=== PATIENT | male | born 1940 | race Caucasian/White ===

== ENCOUNTER 2016-11-07 10:33 | Inpatient (IN) | payer MEDICARE ==
[2016-10-31 11:18] LABS: WBC (NOT ORDERED) (RFLEX) 0 (0-5)
[2016-10-31 11:31] LABS: BASOPHILS 0.5 %; BASOPHILS ABSOLUTE 0.03 10/3/uL (0.0-0.16); EOSINOPHILS 4.2 %; EOSINOPHILS ABSOLUTE 0.24 10/3/uL (0.0-0.53); IMMATURE GRANULOCYTES 0.3 %; IMMATURE GRANULOCYTES ABSOLUTE 0.02 10/3/uL (0.0-0.11); LYMPHOCYTES 15.6 %; MEAN CORPUS HGB CONC 36.1 g/dL (32.0-36.0); MEAN CORPUSCULAR HEMOGLOB 31.5 pg (26.0-34.0); MEAN CORPUSCULAR VOLUME 87.3 fL (80-100); MEAN PLATELET VOLUME 10.1 fL (9.2-13.0); MONOCYTES 7.3 %; MONOCYTES ABSOLUTE 0.42 10/3/uL (0.21-1.20); NEUTROPHILS 72.1 %; NEUTROPHILS ABSOLUTE 4.16 10/3/uL (2.02-8.40); PLATELET COUNT 161 10/3/uL (150-400); RBC DISTRIBUTION WIDTH 13.4 % (12.0-16.0)
[2016-10-31 11:32] LABS: HEMATOCRIT 37.1 % (40.0-51.0); HEMOGLOBIN 13.4 g/dL (13.6-17.8); MANUAL DIFF NO %; RED CELL COUNT 4.25 10/6/uL (4.7-6.1); WHITE BLOOD CELLS 5.8 10/3/uL (4.5-10.5)
[2016-10-31 11:43] LABS: BUN (BLOOD UREA NITROGEN) 27 MG/DL (6-23); CHLORIDE, SERUM 101 MMOL/L (96-112); CO2 (CARBON DIOXIDE) 27 MMOL/L (24-34); CREATININE 1.09 MG/DL (0.70-1.30); GFR AFRICAN AMERICAN 77 ML/MIN (>=60); GFR NON AFRICAN AMERICAN 66 ML/MIN (>=60); GLUCOSE, SERUM 260 MG/DL (60-99); POTASSIUM, SERUM 4.2 MMOL/L (3.5-5.3); SODIUM, SERUM 138 MMOL/L (135-148)
[2016-10-31 12:23] LABS: ASCORBIC ACID (UR NOT ORDER) NEG (NEG); BILIRUBIN, URINE NEGATIVE (NEG); KETONE, URINE NEGATIVE (NEG); LEUKOCYTE ESTERASE(NOT OR NEG (NEG)
--- NOTE | ~2016-11-07 | OP ---
Record Of Operation [facility] [address] [place]. [address] NAME: ELAINE LANGLEY : 42 STATUS : ADM IN PAT#: [id number] AGE: 76 ADM/REG DATE : 11/07/16 MR#: [id number] REPORT SERV DATE: 11/08/16 DICTATED BY: BIB MONROY DATE: 11/08/16 REPORT STATUS : Draft TRANSCRIBED BY: MODL DATE: 11/08/16 DATE OF PROCEDURE: 11/07/2016 PREOPERATIVE DIAGNOSIS: Severe right internal carotid artery stenosis. POSTOPERATIVE DIAGNOSIS: Severe right internal carotid artery stenosis. SURGERY PERFORMED: Right carotid endarterectomy with bovine patch angioplasty. REC THERAPIST: Malini. DESCRIPTION OF PROCEDURE: The patient was placed under general endotracheal anesthesia. The neck and chest were prepped and draped in a sterile fashion. An incision was made along the anterior border of the sternocleidomastoid muscle. This was carried through the skin and subcutaneous tissue. The platysma was divided with the cautery unit. Deep cervical fascia was opened. Facial vein was doubly clamped, divided, and tied with 3-0 silk suture. Common carotid artery was dissected from surrounding tissue and encircled with vessel loop. The internal and external were dissected distally, but the internal was encircled with a vessel loop distally. He was given 5000 units of heparin after an adequate period of time. The internal, external, and common carotid arteries were occluded. Arteriotomy was made in the common and extended through the bulb into the internal carotid artery. A #10 G[place]t shunt was placed without difficulty. Endarterectomy was carried out with the Rincon elevator. He was found to have a significant plaque in the common carotid proximal to the bifurcation. There was also significant stenosis at the internal with a plaque extending fairly far distal. The plaque was completely removed. The area was irrigated. The opening in the vessel closed with a bovine patch which was sewn on with 6-0 running Prolene suture. Before the suture completed, the shunt was removed and flushing carried out. Suture tied and flow released to the external and then to the internal carotid artery. Additional sutures were used for hemostasis. Surgicel was placed over the patch. A 7-flat MICHAEL drain was brought out inferiorly and sutured to the skin with 3-0 Vicryl. The wound was then closed with 2-0 and 3-0 Vicryl suture for the deep tissue and the platysma. Skin was closed with 4-0 Monocryl subcuticular stitch. Estimated blood loss was 100 mL. He awoke from the operating room table, moving all four extremities. MG/YEN Bib Monroy M.D. / [id number] CC: Bib Monroy M.D.
[~2016-11-07 10:33] MED LIST: ALEVE220 MG PO; AMARYL2 PO; ASAB PO; FISH-EPA1000 MG PO; GLUCOPHAGE1000 MG PO; L-LYSINE500 M1 OR; LANTUS SC; LOP50 PO; MULTIPLE VIT PO; NORV5 PO; POT GLUCONAT550 M1 OR; PRILO PO; ZESTORETIC1 TA1 PO; ZOCOR40 PO
[2016-11-07 11:26] LABS: BUN (BLOOD UREA NITROGEN) 36 MG/DL (6-23); CALCIUM, SERUM 9.3 MG/DL (8.5-10.4); CHLORIDE, SERUM 100 MMOL/L (96-112); CO2 (CARBON DIOXIDE) 30 MMOL/L (24-34); GFR AFRICAN AMERICAN 62 ML/MIN (>=60); GFR NON AFRICAN AMERICAN 53 ML/MIN (>=60); GLUCOSE, SERUM 234 MG/DL (60-99); POTASSIUM, SERUM 4.2 MMOL/L (3.5-5.3); SODIUM, SERUM 137 MMOL/L (135-148)
[2016-11-08 04:17] LABS: BASOPHILS 0.5 %; BASOPHILS ABSOLUTE 0.03 10/3/uL (0.0-0.16); EOSINOPHILS 2.9 %; EOSINOPHILS ABSOLUTE 0.19 10/3/uL (0.0-0.53); HEMATOCRIT 33.7 % (40.0-51.0); HEMOGLOBIN 11.9 g/dL (13.6-17.8); IMMATURE GRANULOCYTES 0.3 %; IMMATURE GRANULOCYTES ABSOLUTE 0.02 10/3/uL (0.0-0.11); LYMPHOCYTES ABSOLUTE 1.29 10/3/uL (0.67-4.30); MANUAL DIFF NO %; MEAN CORPUS HGB CONC 35.3 g/dL (32.0-36.0); MEAN CORPUSCULAR HEMOGLOB 31.2 pg (26.0-34.0); MEAN CORPUSCULAR VOLUME 88.5 fL (80-100); MEAN PLATELET VOLUME 9.9 fL (9.2-13.0); MONOCYTES 7.1 %; MONOCYTES ABSOLUTE 0.46 10/3/uL (0.21-1.20); NEUTROPHILS 69.2 %; NEUTROPHILS ABSOLUTE 4.47 10/3/uL (2.02-8.40); PLATELET COUNT 166 10/3/uL (150-400); RBC DISTRIBUTION WIDTH 12.8 % (12.0-16.0); RED CELL COUNT 3.81 10/6/uL (4.7-6.1); WHITE BLOOD CELLS 6.5 10/3/uL (4.5-10.5)
[2016-11-08 04:29] LABS: CALCIUM, SERUM 8.4 MG/DL (8.5-10.4); CHLORIDE, SERUM 101 MMOL/L (96-112); CO2 (CARBON DIOXIDE) 28 MMOL/L (24-34); CREATININE 1.13 MG/DL (0.70-1.30); GFR AFRICAN AMERICAN 73 ML/MIN (>=60); GFR NON AFRICAN AMERICAN 63 ML/MIN (>=60); GLUCOSE, SERUM 222 MG/DL (60-99); POTASSIUM, SERUM 4.1 MMOL/L (3.5-5.3); SODIUM, SERUM 139 MMOL/L (135-148)
[2016-11-08 04:34] LABS: BUN (BLOOD UREA NITROGEN) 28 MG/DL (6-23)
[2016-11-08 15:08] LABS: BUN (BLOOD UREA NITROGEN) 23 MG/DL (6-23); CALCIUM, SERUM 8.6 MG/DL (8.5-10.4); CHLORIDE, SERUM 99 MMOL/L (96-112); CO2 (CARBON DIOXIDE) 29 MMOL/L (24-34); CREATININE 1.07 MG/DL (0.70-1.30); GFR AFRICAN AMERICAN 78 ML/MIN (>=60); GFR NON AFRICAN AMERICAN 68 ML/MIN (>=60); GLUCOSE, SERUM 228 MG/DL (60-99); POTASSIUM, SERUM 4.1 MMOL/L (3.5-5.3); SODIUM, SERUM 137 MMOL/L (135-148)
[2016-11-09 03:52] LABS: BASOPHILS 0.3 %; BASOPHILS ABSOLUTE 0.02 10/3/uL (0.0-0.16); EOSINOPHILS 4.4 %; EOSINOPHILS ABSOLUTE 0.31 10/3/uL (0.0-0.53); HEMATOCRIT 34.3 % (40.0-51.0); HEMOGLOBIN 11.9 g/dL (13.6-17.8); IMMATURE GRANULOCYTES 0.3 %; IMMATURE GRANULOCYTES ABSOLUTE 0.02 10/3/uL (0.0-0.11); LYMPHOCYTES ABSOLUTE 0.91 10/3/uL (0.67-4.30); MANUAL DIFF NO %; MEAN CORPUS HGB CONC 34.7 g/dL (32.0-36.0); MEAN CORPUSCULAR HEMOGLOB 30.6 pg (26.0-34.0); MEAN CORPUSCULAR VOLUME 88.2 fL (80-100); MEAN PLATELET VOLUME 9.9 fL (9.2-13.0); MONOCYTES 6.3 %; MONOCYTES ABSOLUTE 0.44 10/3/uL (0.21-1.20); NEUTROPHILS 75.7 %; PLATELET COUNT 179 10/3/uL (150-400); RED CELL COUNT 3.89 10/6/uL (4.7-6.1)
[2016-11-09 04:12] LABS: ALBUMIN 3.3 G/DL (3.5-5.0); BUN (BLOOD UREA NITROGEN) 23 MG/DL (6-23); CALCIUM, SERUM 8.8 MG/DL (8.5-10.4); CHLORIDE, SERUM 101 MMOL/L (96-112); CO2 (CARBON DIOXIDE) 28 MMOL/L (24-34); CREATININE 1.07 MG/DL (0.70-1.30); GFR AFRICAN AMERICAN 78 ML/MIN (>=60); GFR NON AFRICAN AMERICAN 68 ML/MIN (>=60); GLUCOSE, SERUM 189 MG/DL (60-99); PHOSPHORUS, SERUM 2.8 MG/DL (2.5-4.5); SODIUM, SERUM 138 MMOL/L (135-148)
== END 2016-11-09 13:44 | disposition home or self-care (01) | DRG 38 ==
LOC: SDC/OF 10:33 → PACU 14:34 → CCU 19:14
PROVIDERS: Internal Medicine; Surgery Vascular Surgery
PROC: 03CK0ZZ Extirpation of Matter from Right Internal Carotid Artery, Open Approach (ICD-10-PCS; principal; 2016-11-08)
DX: I65.21 Occlusion and stenosis of right carotid artery (principal); D62 Acute posthemorrhagic anemia; E11.9 Type 2 diabetes mellitus without complications; I35.0 Nonrheumatic aortic (valve) stenosis; I97.3 Postprocedural hypertension; I16.0 Hypertensive urgency; Z23 Encounter for immunization; M10.9 Gout, unspecified; M19.90 Unspecified osteoarthritis, unspecified site; E78.2 Mixed hyperlipidemia; M51.36 Other intervertebral disc degeneration, lumbar region; E83.42 Hypomagnesemia; K21.9 Gastro-esophageal reflux disease without esophagitis
CPT/HCPCS: 80048; 80069; 81001; 82962; 83735; 83880; 85025; 87641; 88304; 88311; 90662; 93005; A9270-GY; C1768; G0008; J0360; J0690; J2250; J2370; J2405; J2710; J3010